=== PATIENT | female | born 1945 | race Caucasian/White ===

== ENCOUNTER 2016-08-20 07:53 | Day surgery (SDC) | payer MEDICARE, BC ==
[~2016-08-20 07:53] MED LIST: Lactated Ringers 1,000 ML IV SCH
[2016-08-20] MEDS ORDERED: fentaNYL 100 MCG/2 ML SDV ONE (08:50)
[2016-08-20] MEDS ORDERED: Propofol 200 MG/20 ML SDV ONE ×2 (08:51→10:21)
[2016-08-20 10:51] VITALS: BP 132/70
--- NOTE | 2016-08-20 18:41 | OR ---
DATE OF THE PROCEDURE: 08/20/2016. REFERRING PROVIDERS: Gaby Ocampo DO. PREOPERATIVE DIAGNOSES: 1. History of colon polyps. Patient states last colonoscopy was a couple years ago in [place]. 2. Chronic constipation with acute worsening. POSTOPERATIVE DIAGNOSES: 1. Mild internal hemorrhoids, not acutely inflamed. 2. Tortuous colon but otherwise normal. PROCEDURE: 1. Colonoscopy. SURGEON: Jersey Coleman M.D. ANESTHESIA: Monitored anesthesia care. BOWEL PREP: Good. Lianna is a 70-year-old female who was brought to the endoscopy suite after discussing risks and benefits of the procedure. Informed consent was obtained for conscious sedation and colonoscopy with or without biopsy and/or polypectomy. We also discussed possibility of missed lesions. Pre-procedure exam was unremarkable. IV, oxygen, and monitors were placed. The patient was placed in the left lateral decubitus position. Sedation was administered and a digital rectal exam was performed and was unremarkable. Colonoscope was passed into the rectum and slowly advanced all the way to the cecum. The patient did have a rather tortuous colon did require and some scope maneuvering and abdominal pressure to obtain cecal intubation. The cecum was briefly viewed but not able to be photographed in the cecum just on the entry to the cecum. I did get a brief view of the cecum and this appeared normal. The colonoscope was slowly withdrawn and the mucosa was closely observed in a direct circumferential manner. The ascending colon was unremarkable. The transverse colon was unremarkable. The descending colon was unremarkable. The sigmoid colon was unremarkable. Retroflexion was performed and rectal mucosa reveals some mild internal hemorrhoids, not acutely inflamed. Scope was removed. The patient tolerated the procedure well. The patient was monitored until that baseline status. Discharge instructions were reviewed and the patient was discharged in good condition. COMPLICATIONS: None. TOTAL TIME: 22 minutes. ESTIMATED BLOOD LOSS: None. RECOMMENDATIONS/FOLLOW-UP: Given the patient's previous history of colon polyps, I would recommend repeat colonoscopy in about 5 years depending on her health status at that time. I would like to kindly thank Gaby Ocampo. DMB: 08/20/2016 10:38:46 MODL: 08/20/2016 18:35:51 /[id number]
== END 2016-08-20 12:05 | disposition home or self-care (01) ==
LOC: VM.SDS 07:53
PROVIDERS: ATTEND Family Medicine
DX: Z12.11 Encounter for screening for malignant neoplasm of colon (principal); K59.09 Other constipation; Q43.8 Other specified congenital malformations of intestine; K64.8 Other hemorrhoids; E78.01 Familial hypercholesterolemia; E78.00 Pure hypercholesterolemia, unspecified; M85.80 Other specified disorders of bone density and structure, unspecified site; Q60.0 Renal agenesis, unilateral; E66.9 Obesity, unspecified; F32.9 Major depressive disorder, single episode, unspecified; F41.9 Anxiety disorder, unspecified; K21.9 Gastro-esophageal reflux disease without esophagitis; Z86.010 Personal history of colon polyps; Z79.899 Other long term (current) drug therapy; Z98.84 Bariatric surgery status; Z90.710 Acquired absence of both cervix and uterus
CPT/HCPCS: 00810; G0105; J2704; J3010; J7120

== ENCOUNTER 2019-04-26 12:08 | Emergency (ER) | payer MEDICARE, OTHER ==
[2019-04-26 12:48] VITALS: BP 106/48; PULSE 78
[2019-04-26] MEDS ORDERED: Acetaminophen/HYDROcodone 325-5 MG Tab PO ONE (12:54)
--- NOTE | 2019-04-26 12:55 | EDM.PDOC ---
ED HPI GENERAL MEDICAL PROBLEM - General Chief Complaint: Neck Problem Stated Complaint: NECK PAIN Time Seen by Provider: 04/26/19 12:47 Source of Information: Reports: Patient History Limitations: Reports: No Limitations - History of Present Illness INITIAL COMMENTS - FREE TEXT/NARRATIVE: Pt. states that she woke this AM with acute onset L lateral neck pain with radiation into her L shoulder/upper scapula area. Pt. states that she woke up with the symptoms this AM. She states that the discomfort is worse with movement of the head. She denies any previous history of cervical spine pain. No history of vertebral compression fracture. Pt. states that she has been diagnosed with osteopenia diagnosed with DEXA in 2014. Pt. denies any traumatic injury. No recent falls. No fever or chills. Denies any headache. She denies any radicular symptoms in either upper extremity. No numbness/tingling to her torso or extremities. No history of cancer. She denies any bowel or bladder issues. Onset: Today Onset Date: 04/26/19 Location: Reports: Neck, Back Quality: Reports: Sharp Severity: Severe Improves with: Reports: Rest Worsens with: Reports: Movement Context: Denies: Activity, Exercise, Trauma Associated Symptoms: Denies: Chest Pain, Diaphoresis, Fever/Chills, Headaches, Nausea/Vomiting, Seizure, Shortness of Breath Treatments HORTICULTURAL THERAPIST: Reports: Cold Therapy Left Side of Neck Pain Score (Numeric/FACES): 7 - Related Data Allergies Allergy/AdvReac Type Severity Reaction Status Date / Time No Known Allergies Allergy Verified 04/26/19 12:28 Home Meds: Home Meds FLUoxetine [PROzac] 40 mg PO DAILY 08/17/16 [History] Multivitamin with Minerals [Multiple Vitamin] 1 tab PO DAILY 08/17/16 [History] Travoprost [Travatan Z] 5 ml OP BEDTIME 04/26/19 [History] busPIRone [Buspar] 5 mg PO BID 04/26/19 [History] Past Medical History HEENT History: Reports: Cataract Cardiovascular History: Reports: Angina, High Cholesterol, Other (See Below) Respiratory History: Reports: None Gastrointestinal History: Reports: Chronic Constipation, Colon Polyp, GERD Genitourinary History: Reports: Other (See Below) Other Genitourinary History: solitary kidney Musculoskeletal History: Reports: None Neurological History: Reports: None Psychiatric History: Reports: Anxiety, Depression Endocrine/Metabolic History: Reports: Osteopenia Hematologic History: Reports: Anemia Immunologic History: Reports: None Oncologic (Cancer) History: Reports: None - Past Surgical History HEENT Surgical History: Reports: Cataract Surgery GI Surgical History: Reports: Appendectomy, Bariatric Procedure, Cholecystectomy , Colonoscopy ED ROS GENERAL - Review of Systems Review Of Systems: See Below Constitutional: Reports: No Symptoms HEENT: Reports: No Symptoms Respiratory: Reports: No Symptoms Cardiovascular: Reports: No Symptoms Endocrine: Reports: No Symptoms GI/Abdominal: Reports: No Symptoms : Reports: No Symptoms Musculoskeletal: Reports: Neck Pain, Shoulder Pain Skin: Reports: No Symptoms Neurological: Reports: No Symptoms. Denies: Numbness, Tingling, Weakness Psychiatric: Reports: No Symptoms Hematologic/Lymphatic: Reports: No Symptoms Immunologic: Reports: No Symptoms ED EXAM, GENERAL - Physical Exam Exam: See Below Exam Limited By: No Limitations General Appearance: Alert, WD/WN, No Apparent Distress Neck: Limited Range of Motion, Tender Lateral. No: Tender Midline Respiratory/Chest: No Respiratory Distress Back Exam: Normal Inspection, Decreased Range of Motion, Muscle Spasm, Other ( pain with rotation of the head, particularly toward the L. Muscle spasm noted to L upper back/cervical spine. No stepoffs or deformity noted. No crepitus.) Neurological: Alert, Oriented, CN II-XII Intact, Normal Cognition, Normal Reflexes, No Motor/Sensory Deficits, Other (Brachioradialis reflexes +2 . [place] Painter strength equal bilaterally.) Course - Vital Signs Last Recorded V/S: Last Vital Signs Temp 35.9 C 04/26/19 12:47 Pulse 78 04/26/19 12:47 Resp 16 04/26/19 12:47 BP 106/48 L 04/26/19 12:47 Pulse Ox 98 04/26/19 12:47 - Orders/Labs/Meds Meds: Medications Discontinued Medications Generic Name Dose Route Start Last Admin Trade Name Freq PRN Reason Stop Dose Admin Hydrocodone Bitart/Acetaminophen 1 tab 04/26/19 12:54 04/26/19 12:57 [place] 325-5 Mg PO 04/26/19 12:55 1 tab ONETIME ONE Administration - Radiology Interpretation Free Text/Narrative:: Multi-level degenerative change, no evidence of acute fracture, vertebral compression, or subluxation. Departure - Departure Time of Disposition: 13:30 Disposition: Home, Self-Care 01 Clinical Impression: Acute cervical sprain - Discharge Information Instructions: Acetaminophen; Hydrocodone tablets or capsules, Cyclobenzaprine tablets, Cervical Sprain Referrals: Gaby Ocampo DO [Primary Care Provider] - Forms: ED Department Discharge Additional Instructions: [place] 5/325mg 1 every 4-6 hours as needed for pain Flexeril 10mg 1 tab 3 times daily for pain/muscle spasm Work on improving range of motion of the neck. It is important that you keep moving your head to help loosen up the muscles. Physical therapy appointment tomorrow morning at 7 AM. Sepsis Event Note - Evaluation Sepsis Screening Result: No Definite Risk - Focused Exam Vital Signs: Vital Signs Temp Pulse Resp BP Pulse Ox 04/26/19 12:47 35.9 C 78 16 106/48 L 98 Date Exam was Performed: 04/26/19 Time Exam was Performed: 14:09 - Assessment/Plan Plan: [place] 5/325mg 1 every 4-6 hours as needed for pain Flexeril 10mg 1 tab 3 times daily for pain/muscle spasm Work on improving range of motion of the neck. It is important that you keep moving your head to help loosen up the muscles. Physical therapy appointment tomorrow morning at 7 AM.
--- NOTE | 2019-04-26 13:20 | CT ---
[id number] CT/CT Cervical Spine WO IV Exam: CT Cervical Spine WO IV CLINICAL DATA: FALL. COMPARISON: None. FINDINGS: No fracture or subluxation is seen. The C1-C2 articulation is unremarkable. The prevertebral soft tissues are within normal limits. Mild multilevel degenerative changes of the cervical spine including loss of disc space height, endplate osteophytosis and facet arthropathy. These findings are most pronounced at C4-C5. IMPRESSION: NO ACUTE FRACTURE OR SUBLUXATION. MILD MULTILEVEL DEGENERATIVE CHANGES OF THE CERVICAL SPINE MOST PRONOUNCED AT C4-C5. Anmol Valentine DO 04/26/19 1319 Thank you for allowing us to participate in the care of your patient.
== END 2019-04-26 13:48 | disposition home or self-care (01) ==
LOC: VM.ED 12:08
DX: S13.4XXA Sprain of ligaments of cervical spine, initial encounter (principal); F41.9 Anxiety disorder, unspecified; F32.9 Major depressive disorder, single episode, unspecified; Z79.899 Other long term (current) drug therapy; Z98.49 Cataract extraction status, unspecified eye; Z90.49 Acquired absence of other specified parts of digestive tract; Z98.84 Bariatric surgery status; X58.XXXA Exposure to other specified factors, initial encounter
CPT/HCPCS: 72125; 99283-25; 99283-GF; A9270-GY

== ENCOUNTER 2022-08-06 21:03 | Emergency (ER) | payer MEDICARE, OTHER ==
[2022-08-06 21:29] VITALS: BP 132/65; PULSE 75
[2022-08-06 22:26] LABS: ANION GAP 17.2 mmol/L (5-15)
== END 2022-08-06 22:45 | disposition home or self-care (01) ==
LOC: VM.ED 21:03
DX: U07.1 COVID-19 (principal); K59.00 Constipation, unspecified; E87.1 Hypo-osmolality and hyponatremia; Z87.891 Personal history of nicotine dependence
CPT/HCPCS: 36415; 71046; 74019; 80053; 83690; 84484; 85025; 86140; 93005; 93010; 99284

== ENCOUNTER 2024-12-24 04:28 | Emergency (ER) | payer MEDICARE, OTHER ==
[2024-12-24] MEDS: Ondansetron 4 MG/2 ML SDV IVPUSH ONE (04:39)
[2024-12-24] MEDS ORDERED: Naloxone 0.4 MG/ML SDV IVPUSH PRN (04:46)
[2024-12-24 04:48] LABS: BASOPHILS ABSOLUTE AUTO 0.0 x10^3/uL (0.0-0.2); BASOPHILS PERCENT AUTO 0.3 % (0.2-1.2); EOSINOPHILS ABSOLUTE AUTO 0.1 x10^3/uL (0.0-0.5); EOSINOPHILS PERCENT AUTO 0.6 % (0.0-4.0); IMMATURE GRAN ABSOLUTE AUTO 0.02 x10^3/uL (0.00-0.07); IMMATURE GRAN PERCENT AUTO 0.20 % (0.00-0.43); LYMPHOCYTES ABSOLUTE AUTO 1.5 x10^3/uL (1.0-4.8); LYMPHOCYTES PERCENT AUTO 13.0 % (25.0-50.0); MONOCYTES ABSOLUTE AUTO 0.5 x10^3/uL (0.0-0.8); MONOCYTES PERCENT AUTO 4.0 % (2.0-11.0); NEUTROPHILS ABSOLUTE AUTO 9.7 x10^3/uL (1.8-7.7); NEUTROPHILS PERCENT AUTO 81.9 % (50.0-80.0); PLATELET COUNT,PLT 289 x10^3/uL (130-400); RED BLOOD CELL COUNT 4.62 x10^6/uL (4.00-5.50); WHITE BLOOD CELL COUNT,WBC 11.9 x10^3/uL (4.0-10.0)
[2024-12-24] MEDS: fentaNYL 50 MCG/ML SDV IVPUSH ONE ×2 (04:51→06:04)
[2024-12-24 05:09] LABS: A/G RATIO 0.90; ALANINE AMINOTRANSFERASE,ALT 24 U/L (14-59); ASPARTATE AMNIOTRANSFERASE,AST 26 U/L (15-37); BILIRUBIN TOTAL 1.0 mg/dL (0.2-1.0); BLOOD UREA NITROGEN,BUN 15 mg/dL (7-18); CARBON DIOXIDE,CO2 24 mmol/L (21-32); CHLORIDE,CL 100 mmol/L (98-107); CREATININE 1.1 mg/dL (0.55-1.02); ESTIMATED GFR 51 mL/min (>=60); GLUCOSE RANDOM 172 mg/dL (70-99); POTASSIUM,K 3.8 mmol/L (3.5-5.1); PROTEIN TOTAL,TP 7.4 g/dL (6.4-8.2); SODIUM,NA 140 mmol/L (136-145)
[2024-12-24] MEDS: Alum Hydrox/Mag Hydrox/Simeth 30 ML, Lidocaine 2% 15 ML, Promethazine 12.5 MG PO ONE (05:36)
[2024-12-24 05:51] LABS: APPEARANCE,URINE SLIGHTLY CLOUDY (CLEAR); GLUCOSE,URINE NEGATIVE (NEGATIVE); OCCULT BLOOD,URINE NEGATIVE (NEGATIVE)
[2024-12-24 05:58] LABS: SQUAMOUS EPITHELIAL CELLS,UR RARE /HPF (NOT SEEN)
[2024-12-24] MEDS: Iopamidol 612 MG/ML 100 ML Bottle IVPUSH ONE (06:36)
[2024-12-24] MEDS: Take Home: Ondansetron 4 MG Tab.DIS, 5 Tab Pack PO ONE (07:40)
[2024-12-24 07:47] VITALS: BP 137/64; PULSE 70
== END 2024-12-24 07:45 | disposition home or self-care (01) ==
LOC: VM.ED 04:28
DX: K52.9 Noninfective gastroenteritis and colitis, unspecified (principal); Z79.899 Other long term (current) drug therapy; Z90.49 Acquired absence of other specified parts of digestive tract; Z90.710 Acquired absence of both cervix and uterus
CPT/HCPCS: 74177; 80053; 81001; 85025; 96374; 96375; 96376; 99284; A9270; J2405; J3010; Q0162; Q9967; 36415